=== PATIENT | male | born 1985 | race Caucasian/White ===

== ENCOUNTER 2021-10-14 10:08 | Emergency (ER) | payer OTHER ==
[2021-10-14 10:32] VITALS: BP 134/71; PULSE 80; TEMP 97.1; BMI 26.7
[2021-10-14] MEDS ORDERED: CASIRIVIMAB/IMDEVIMAB 10 ML in SODIUM CHLORIDE 100 ML IVPB ONE (10:48)
[2021-10-14] MEDS ORDERED: BAMLANIVIMAB 700 MG, ETESEVIMAB 1,400 MG in SODIUM CHLORIDE 100 ML IVPB ONE (12:00)
== END 2021-10-14 17:09 | disposition home or self-care (01) ==
LOC: JER 10:08 → JCOVINFU 10:08
DX: U07.1 COVID-19 (principal)
CPT/HCPCS: 99284-25; M0239; Q0239; Q0245